=== PATIENT | female | born 1990 | race Caucasian/White ===

== ENCOUNTER 2019-04-21 00:03 | Inpatient (IN) ==
[2019-04-21] MEDS ORDERED: MISOPROSTOL 100 MCG TABLET VG PRN (18:09)
[2019-04-21] MEDS ORDERED: BUTORPHANOL TARTRATE 2 MG/ML VIAL IV PRN ×2 (18:09)
[2019-04-21] MEDS ORDERED: ONDANSETRON 4 MG TAB.RAPDIS PO PRN (18:09)
[2019-04-21] MEDS ORDERED: LIDOCAINE HCL 50 ML VIAL PERI PRN (18:09)
[2019-04-21] MEDS ORDERED: PENICILLIN G POTASSIUM 5 MILLIONUNT in DEXTROSE 5 % IN WATER 100 ML IV ONE ×2 (18:09)
[2019-04-21] MEDS ORDERED: OXYTOCIN/DEXTROSE 5%-WATER 30 UNITS/500 ML BAG IV ONE (18:09)
[2019-04-21] MEDS ORDERED: RINGER'S SOLUTION,LACTATED 1,000 ML IV ONE (18:09)
[2019-04-21 18:22] LABS: Random Urine Total Protein Less than 6.0 mg/dL (0-12)
[2019-04-21 18:26] LABS: Cocaine Ur Negative (NEGATIVE); Urine Barbiturate Negative (NEGATIVE); Urine Benzodiazepines Negative (NEGATIVE); Urine Opiates Negative (NEGATIVE); Urine PCP Negative (NEGATIVE); Urine THC Negative (NEGATIVE)
[2019-04-21 18:36] LABS: Hematocrit 33.7 % (37.0-47.0); Hemoglobin 11.6 gm/dL (12.5-16.0); Mean Cell Volume 93.1 fl (78-100); Mean Corpuscular Hgb Conc 34.4 g/dl (32-36); Mean Platelet Volume 9.5 fl (8-12.5); Neutrophil # 5.8 K/mm3 (1.3-6.0); Neutrophil % 66.3 % (42-75.0); Platelet Count 181 K/mm3 (150-450); Red Blood Count 3.62 M/mm3 (4.2-5.4); Red Cell Distribution Width 13.3 % (11.5-14.0); White Blood Count 8.7 K/mm3 (4.0-10.5)
[2019-04-21 18:45] LABS: Albumin * 2.5 gm/dl (3.4-5.0); BUN/Creatinine Ratio 12.3 (9.0-21.6); Bilirubin, Total 0.2 mg/dL (0.0-1.1); Ca. Corrected For Albumin 9.2 mg/dL (8.4-10.2); Calcium * 8.3 mg/dL (7.9-10.9); Carbon Dioxide 24.6 mmol/L (24-32.6); Potassium 3.6 mmol/L (3.4-4.6); Total Protein 6.4 gm/dL (6.2-8.2)
[2019-04-21] MEDS ORDERED: PENICILLIN G POTASSIUM 2.5 MILLIONUNT in DEXTROSE 5 % IN WATER 100 ML IV SCH ×2 (22:09)
[2019-04-22] MEDS: RINGER'S SOLUTION,LACTATED 1,000 ML IV PRN ×2 (00:03→16:38)
[2019-04-22] MEDS ORDERED: NALOXONE HCL 1 MG/1 ML SYRG IV PRN (15:38)
[2019-04-22] MEDS ORDERED: ONDANSETRON HCL/PF 2 MG/ML VIAL IV PRN (15:38)
[2019-04-22] MEDS ORDERED: BUPIVACAINE HCL/0.9 % NACL/PF 250 ML EP PRN (15:38)
[2019-04-22] MEDS ORDERED: fentaNYL CITRATE/PF 50 MCG/ML AMPUL IT SCH (15:45)
--- NOTE | 2019-04-22 17:27 | HP ---
Chief Complaint - Chief Complaint Date of Service: 04/22/19 Time of Service: 17:06 Chief Complaint: Induction History of Present Illness: 29 year old at 38w0d who presents to labor and delivery for an IOL due to chronic hypertension. She reports irregular contractions. She denies vaginal bleeding or loss of fluid. Fetus is active. The patient denies headache, visual changes or abdominal pain. Medical History (Last Reviewed 04/22/19 @ 17:16 by Corinna Coto MD) Generalized anxiety disorder (Acute) Major depressive disorder, recurrent, moderate (Acute) Migraine headache with aura Onset Date: Unknown Abnormal Pap smear of cervix Onset Date: ~2012 Anemia Onset Date: ~2012 during Surgical History: Surgical History (Last Reviewed 04/22/19 @ 17:16 by Corinna Coto MD) H/O wisdom tooth extraction Onset Date: ~2003 History of colposcopy Onset Date: ~2012 Family History: Family History (Last Reviewed 04/22/19 @ 17:16 by Corinna Coto MD) Father Alive and well Mother Alive and well Aunt Cancer maternal aunt-breast CA Grandmother Cancer (paternal) cancer, unsure what type. Social History: (Last Reviewed 04/22/19 @ 17:16 by Corinna Coto MD) Social History: Marital status: household members: significant other, children current occupational status: employed current occupation: [employer] current occupational exposures/hazards: No Highest education level completed: some college, no degree Service: No Tobacco: Smoking Status: Former smoker tobacco type: e-cigarettes Alcohol: alcohol intake: current alcohol intake frequency: a few times a week details: none since +UPT Substance Use: substance use type: does not use Dietary Habits: caffeine: Yes caffeine comment: 1 daily Type: coffee Pets: pets and animals: cat(s) Review Of Systems (GEN) - Review of Systems Generalized/Overall Review: Present: No Symptoms Reported Misc: All systems neg except as marked Immunizations: IMMUNIZATION HX Immunizations Up to Date Yes History of Influenza Vaccine No Hx Pneumococcal Vaccination No Allergies/Adverse Reactions: Allergies Allergy/AdvReac Type Severity Reaction Status Date / Time No Known Allergies Allergy Verified 04/21/19 18:00 Home Medications: HOME MEDICATIONS cetirizine 10 mg tablet 10 mg PO DAILY 02/09/18 [Last Taken 04/20/19] cholecalciferol (vitamin D3) 1,000 unit capsule 1,000 unit PO DAILY 11/03/18 [Last Taken 04/20/19] blood sugar diagnostic See Dose Instructions .ROUTE .MEDSUPPLY #100 ea 02/11/19 [Last Taken 04/20/19] blood-glucose meter See Dose Instructions .ROUTE .MEDSUPPLY #1 ea 02/11/19 [Last Taken Unknown] lancets 33 gauge See Dose Instructions .ROUTE .MEDSUPPLY #100 ea 02/11/19 [Last Taken Unknown] Vits96/Iron Fum/Folic [ S] 1 tab PO DAILY 02/23/19 [Last Taken Unknown] insulin regular human 100 unit/mL injection solution 4 unit SUBCUT .at dinner #10 ml 02/25/19 [Last Taken 04/20/19] magnesium 200 mg tablet 200 mg PO DAILY 03/08/19 [Last Taken Unknown] insulin NPH isoph U-100 human 100 unit/mL subcutaneous suspension 16 unit SUBCUT HS ml 04/12/19 [Last Taken 04/20/19] insulin syringe-needle U-100 1 mL 25 gauge x 5/8" See Rx Instructions .ROUTE .MEDSUPPLY #100 ea 04/19/19 [Last Taken Unknown] Exam - Exam Vital Signs: Vital Signs - Last Taken Temp 36.7 C 04/21/19 19:10 Pulse 95 04/21/19 19:10 Resp 18 04/21/19 19:10 BP 136/77 04/21/19 19:10 Pulse Ox 98 04/21/19 19:10 Constitutional: Present: Alert, Oriented x3, Cooperative, No distress ENT Exam: Present: hearing grossly normal Back Exam: Present: normal inspection, no CVA tenderness Breasts: Present: Exam deferred Respiratory: Present: lungs clear, normal breath sounds Cardiovascular/Chest: Present: regular rate, rhythm Abdomen: Present: soft, nontender, nondistended /Rectal: Present: Other - cvx 2/50/-2 AROM for bloody fluid Extremity: Present: non-tender, no calf tenderness Skin Exam: Present: normal color, warm/dry, no cyanosis Appearance: Present: appropriate appearance Eye contact: Present: cooperative Thoughts: Present: normal thought pattern Diagnostic Studies: Abnormal Lab Results 04/21/19 04/21/19 04/21/19 Range/Units 18:09 18:29 18:29 RBC 3.62 L (4.2-5.4) M/mm3 Hgb 11.6 L (12.5-16.0) gm/dL Hct 33.7 L (37.0-47.0) % MCH 32.0 H (27-31) pg Immature Gran % (Auto) 0.50 H (0.001-0.429) % Immature Gran # (Auto) 0.04 H (0.000-0.0310) K/mm3 Monocytes % 9.8 H (0.0-9) % Eosinophils % 3.1 H (0.0-3.0) % Anion Gap 14.0 H (6.8-13.8) mmol/L Est GFR (Non-Af Amer) 132 H (60-130) mL/min Albumin 2.5 L (3.4-5.0) gm/dl Ur Random Creatinine 18.4 L (60-200) mg/dL U Hubbard Prot/Creat Ratio 326 H (0-199) mg/gm Laboratory Results WBC 8.7 K/mm3 (4.0-10.5) 04/21/19 18:29 RBC 3.62 M/mm3 (4.2-5.4) L 04/21/19 18:29 Hgb 11.6 gm/dL (12.5-16.0) L 04/21/19 18:29 Hct 33.7 % (37.0-47.0) L 04/21/19 18:29 MCV 93.1 fl (78-100) 04/21/19 18:29 MCH 32.0 pg (27-31) H 04/21/19 18:29 MCHC 34.4 g/dl (32-36) 04/21/19 18:29 RDW 13.3 % (11.5-14.0) 04/21/19 18: Plt Count 181 K/mm3 (150-450) 04/21/19 18: MPV 9.5 fl (8-12.5) 04/21/19 18:29 Immature Gran % (Auto) 0.50 % (0.001-0.429) H 04/21/19 18:29 Immature Gran # (Auto) 0.04 K/mm3 (0.000-0.0310) H 04/21/19 18:29 Neutrophils % 66.3 % (42-75.0) 04/21/19 18: Lymphocytes % 20.0 % (20-51) 04/21/19 18: Monocytes % 9.8 % (0.0-9) H 04/21/19 18: Eosinophils % 3.1 % (0.0-3.0) H 04/21/19 18: Basophils % 0.3 % (0.0-1.0) 04/21/19 18: Nucleated RBC % 0.0 k/mm3 (0-1) 04/21/19 18: Neutrophils # 5.8 K/mm3 (1.3-6.0) 04/21/19 18: Lymphocytes # 1.75 k/mm3 (1.5-3.5) 04/21/19 18: Monocytes # 0.9 k/mm3 (0.0-1.0) 04/21/19 18: Eosinophils # 0.3 k/mm3 (0.0-0.7) 04/21/19 18: Absolute Basophils 0.0 k/mm3 (0.0-0.1) 04/21/19 18:29 Sodium 139 mmol/L (132-142) 04/21/19 18: Plasma Sodium 139 mmol/L (130-142) 04/21/19 18: Potassium 3.6 mmol/L (3.4-4.6) 04/21/19 18: Chloride 104 mmol/L (97-106) 04/21/19 18: Carbon Dioxide 24.6 mmol/L (24-32.6) 04/21/19 18: Anion Gap 14.0 mmol/L (6.8-13.8) H 04/21/19 18:29 BUN 7 mg/dL (3-23) 04/21/19 18: Creatinine 0.57 mg/dL (0.4-1.4) 04/21/19 18: Est GFR (Non-Af Amer) 132 mL/min (60-130) H 04/21/19 18:29 BUN/Creatinine Ratio 12.3 (9.0-21.6) 04/21/19 18: Random Glucose 84 mg/dL (70-110) 04/21/19 18:29 Calcium 8.3 mg/dL (7.9-10.9) 04/21/19 18:29 Calcium Adj for Albumin 9.2 mg/dL (8.4-10.2) 04/21/19 18:29 Total Bilirubin 0.2 mg/dL (0.0-1.1) 04/21/19 18:29 AST 20 U/L (0-48) 04/21/19 18:29 ALT 28 U/L (19-67) 04/21/19 18:29 Alkaline Phosphatase 133 U/L (50-170) 04/21/19 18:29 Total Protein 6.4 gm/dL (6.2-8.2) 04/21/19 18:29 Albumin 2.5 gm/dl (3.4-5.0) L 04/21/19 18:29 Ur Random Creatinine 18.4 mg/dL (60-200) L 04/21/19 18:09 U Random Total Protein Less than 6.0 mg/dL (0-12) 04/21/19 18:09 U Hubbard Prot/Creat Ratio 326 mg/gm (0-199) H 04/21/19 18:09 Urine Opiates Screen Negative (NEGATIVE) 04/21/19 18:09 Barbiturate Screen Negative (NEGATIVE) 04/21/19 18:09 Ur Phencyclidine Scrn Negative (NEGATIVE) 04/21/19 18:09 Urine Amphetamine Negative (NEGATIVE) 04/21/19 18:09 U Benzodiazepines Scrn Negative (NEGATIVE) 04/21/19 18:09 Urine Cocaine Screen Negative (NEGATIVE) 04/21/19 18:09 Urine Marijuana (THC) Negative (NEGATIVE) 04/21/19 18:09 Blood Type A Positive 04/21/19 18:29 Antibody Screen Negative 04/21/19 18:29 Assessment/Plan - Narrative Narrative: 29 year old at 38w1d IOL for CHTN: BPs are normal to mild range GBS negative: prophylaxis not indicated
--- NOTE | 2019-04-22 17:30 | ANES ---
Post Anesthesia Discharge - Transfer of Care Transfer of Care handoff given to nurse: Yes - Anesthesia Post Op Note Anesthesia Post Op Note: Care transferred to OB RN
--- NOTE | 2019-04-22 17:30 | ANES ---
Anesthesia Pre Procedure Eval Vitals/Labs: Last Vital Signs Temp 36.7 C 04/21/19 19:10 Pulse 95 04/21/19 19:10 Resp 18 04/21/19 19:10 BP 136/77 04/21/19 19:10 Pulse Ox 98 04/21/19 19:10 HOME MEDICATIONS cetirizine 10 mg tablet 10 mg PO DAILY 02/09/18 [Last Taken 04/20/19] cholecalciferol (vitamin D3) 1,000 unit capsule 1,000 unit PO DAILY 11/03/18 [Last Taken 04/20/19] blood sugar diagnostic See Dose Instructions .ROUTE .MEDSUPPLY #100 ea 02/11/19 [Last Taken 04/20/19] blood-glucose meter See Dose Instructions .ROUTE .MEDSUPPLY #1 ea 02/11/19 [Last Taken Unknown] lancets 33 gauge See Dose Instructions .ROUTE .MEDSUPPLY #100 ea 02/11/19 [Last Taken Unknown] Vits96/Iron Fum/Folic [ S] 1 tab PO DAILY 02/23/19 [Last Taken Unknown] insulin regular human 100 unit/mL injection solution 4 unit SUBCUT .at dinner #10 ml 02/25/19 [Last Taken 04/20/19] magnesium 200 mg tablet 200 mg PO DAILY 03/08/19 [Last Taken Unknown] insulin NPH isoph U-100 human 100 unit/mL subcutaneous suspension 16 unit SUBCUT HS ml 04/12/19 [Last Taken 04/20/19] insulin syringe-needle U-100 1 mL 25 gauge x 5/8" See Rx Instructions .ROUTE .MEDSUPPLY #100 ea 04/19/19 [Last Taken Unknown] Allergies/Adverse Reactions: Allergies Allergy/AdvReac Type Severity Reaction Status Date / Time No Known Allergies Allergy Verified 04/21/19 18:00 - Planned Procedure Planned Procedure: INDUCTION DUE TO CHRONIC HYPERTENSION Medication List Reviewed:: Yes Allergies Verified: Yes Medical History (Last Reviewed 04/22/19 @ 17:29 by Daniel Giron CRNA) Generalized anxiety disorder (Acute) Major depressive disorder, recurrent, moderate (Acute) Migraine headache with aura Onset Date: Unknown Abnormal Pap smear of cervix Onset Date: ~2012 Anemia Onset Date: ~2012 during Surgical History (Last Reviewed 04/22/19 @ 17:29 by Daniel Giron CRNA) H/O wisdom tooth extraction Onset Date: ~2003 History of colposcopy Onset Date: ~2012 Family History (Last Reviewed 04/22/19 @ 17:29 by Daniel Giron CRNA) Father Alive and well Mother Alive and well Aunt Cancer maternal aunt-breast CA Grandmother Cancer (paternal) cancer, unsure what type. - Family Anesthesia History Family History:: no untoward family reactions to anesthesia - Airway/Neck/Teeth Within Normal Limits:: Yes Teeth Condition: intact Neck Exam: full range of motion Mallampatti Score: 2 Thyromental (T-M) distance: > 6 cm Mandibulo Hyoid distance: > 3 cm - Respiratory Respiratory Physical: lungs clear Smoking Status: Never smoker Sleep Apnea currently treated: No Sleep Apnea by current assessment: No - Cardiovascular Tolerate Activity: Good Heart Sounds: S1 & S2, Regular - Gastrointestinal NPO since: 1200 - Anesthesia Assessment and Plan ASA Class: PS, II, E Anesthesia Type Plan: Epidural Planned difficult intubation/equipment available: No
--- NOTE | 2019-04-22 17:30 | ANES ---
Post Anesthesia Assessment - Vital Signs Vitals: Last Vital Signs Temp 36.7 C 04/21/19 19:10 Pulse 95 04/21/19 19:10 Resp 18 04/21/19 19:10 BP 136/77 04/21/19 19:10 Pulse Ox 98 04/21/19 19:10 Airway Patency: Normal - Mental Status Level Of Consciousness: Awake - Pain Level Pain Score: 2 - N/V Assessment Nausea/Vomiting Presence: None Dehydration:: No
--- NOTE | 2019-04-22 18:02 | ANES ---
Anesthesia Procedure Note Procedure Note: ANESTHESIA PROCEDURE NOTE Date of Procedure: 04/22/2019 Time of procedure: 1550. Performed by: Saman Giron CRNA Settlement Processor: None. Preprocedure diagnosis: Active labor. Post procedure diagnosis: Same. Procedure: Insertion of labor epidural. Indications: The patient is a 29-year-old multigravid female in active labor requesting labor epidural for pain management. Findings: See below. Details of the procedure: The patient was placed in a sitting position. Back was prepped with DuraPrep. Patient was then draped in a sterile fashion. Lidocaine 1% was infiltrated to the skin and subcutaneous tissues at the level of the L3 4 interspace. The epidural space was identified using a 18-gauge Tuohy needle with [id number] technique. Attempted intrathecal injection with 27- gauge spinal needle unsuccessful. Unable to puncture the dura. Epidural catheter was inserted without difficulty. Negative test dose was elicited using 5 mL of 1.5% preservative-free lidocaine plus epinephrine 1 200,000. The epidural catheter was then taped and secured in place. EBL: Minimal. Fluids: N/A. Specimen: N/A. Post procedure condition: The patient tolerated the procedure well. No complications were noted. Thank you for this consultation. Kessler CRNA
[2019-04-22] MEDS ORDERED: MISOPROSTOL 200 MCG TABLET RC ONE (18:15)
--- NOTE | 2019-04-22 18:33 | OR ---
Operative Report - Dictated Report Narrative: Date of delivery: 04/22/2019 Time of delivery: 1806 Gender: female weight: 3173 grams APGARS: 9/10 Procedure: Description of the procedure: The patient presented to labor and delivery for a medical induction of labor due to chronic hypertension. She progressed to complete dilation. She delivered a viable female infant in SAMIR presentation. The shoulders delivered without any difficulty followed by the rest of the infant. Cord clamping was delayed. The cord was clamped and cut. The placenta was delivered by expression and appeared intact. A trickle of bleeding ensued so aside from pitocin 30 units, 1000mcg of cytotec was placed rectally. EBL: 200 mL Complications: none Lacerations: left labial not repaired due to hemostasis History for MU Definition: * The number of deliveries resulting in a live the patient experienced prior to current hospitalization * The previous delivery of live twins or any live multiple gestation is considered one live event. *If primagravida or nulliparous is documented select zero for the number of previous live births. Live Events: 2
[2019-04-22] MEDS ORDERED: SENNOSIDES 8.6 MG TABLET PO PRN (18:34)
[2019-04-22] MEDS ORDERED: BISACODYL 10 MG SUPP.RECT RC PRN (18:34)
[2019-04-22] MEDS ORDERED: diphenhydrAMINE HCL 25 MG CAPSULE PO PRN (18:34)
[2019-04-22] MEDS ORDERED: BENZOCAINE/MENTHOL 81 SPRAY CAN TP PRN (18:34)
[2019-04-22] MEDS ORDERED: OXYTOCIN/DEXTROSE 5%-WATER 30 UNITS/500 ML BAG IV ONE (18:34)
[2019-04-22] MEDS ORDERED: GLYCERIN/WITCH HAZEL LEAF 40 APPL BOX TP PRN (18:34)
[2019-04-22] MEDS ORDERED: HYDROCORTISONE 30 APPL TUBE TP PRN (18:34)
[2019-04-22] MEDS ORDERED: HYDROcodone/ACETAMINOPHEN 1 EACH TABLET PO PRN ×2 (18:34)
[2019-04-22] MEDS: DOCUSATE SODIUM 100 MG CAPSULE PO SCH (22:21)
[2019-04-23] MEDS: IBUPROFEN 800 MG TABLET PO PRN ×3 (09:09→21:24)
[2019-04-23] MEDS: DOCUSATE SODIUM 100 MG CAPSULE PO SCH ×2 (09:09→21:24)
--- NOTE | 2019-04-23 12:02 | PN ---
Subjective - Date and Time Seen Date: 04/23/19 Time: 12:01 Subjective Narrative: Patient without complaints Objective Objective Narrative: See vital signs - Review of Systems Generalized/Overall Review: Reports: No Symptoms Reported Misc: All systems neg except as marked - Vitals Vitals: Last Vital Signs Temp 36.9 C 04/23/19 07:20 Pulse 100 04/23/19 07:20 Resp 18 04/23/19 07:20 BP 118/67 04/23/19 07:20 Pulse Ox 97 04/23/19 03:44 - Exam Constitutional: Present: Alert, Oriented x3, Cooperative, No distress Abdomen: Present: soft, nontender, nondistended - fundus is firm Extremity: Present: non-tender, no calf tenderness Skin Exam: Present: normal color, warm/dry, no cyanosis Appearance: Present: appropriate appearance Eye contact: Present: cooperative Thoughts: Present: normal thought pattern Cauti Physician Documentation - Urinary Catheter Management Urethral ([place]) Urethral Indwelling: No Date of Removal: 04/22/19 Time of Removal: 18:00 Assessment/Plan Plan Narrative: PPD 1 s/p Doing well Discharge tomorrow
[2019-04-24] MEDS: IBUPROFEN 800 MG TABLET PO PRN ×2 (04:45→11:36)
[2019-04-24] MEDS: DOCUSATE SODIUM 100 MG CAPSULE PO SCH (07:40)
[2019-04-24 07:59] VITALS: BP 107/65
--- NOTE | 2019-04-24 12:52 | PN ---
Subjective - Date and Time Seen Date: 04/24/19 Time: 12:50 Objective - Vitals Vitals: Last Vital Signs Temp 36.9 C 04/24/19 07:52 Pulse 88 04/24/19 07:52 Resp 20 04/24/19 07:52 BP 107/65 04/24/19 07:52 Pulse Ox 99 04/24/19 07:52 Patient denies complaints. Breast-feeding without difficulty. Lochia wnl abdomen - soft, nontender Uterus -firm, at umbilicus - 2 no calf tenderness Impression: day #2 - s/p spontaneous vaginal delivery. Gestational diabetes-resolved Plan: Routine discharge instructions. Recheck fasting and 1 hour postprandial blood sugar day of visit. Cauti Physician Documentation - Urinary Catheter Management Urethral ([place]) Urethral Indwelling: No Date of Removal: 04/22/19 Time of Removal: 18:00
[2019-04-25] MEDS ORDERED: PRENATAL VITS96/IRON FUM/FOLIC 1 TAB TABLET PO SCH (09:00)
== END 2019-04-24 13:15 | disposition home or self-care (01) | DRG 807 ==
LOC: OB 17:41
PROVIDERS: ADMIT Obstetrics & Gynecology; ATTEND Obstetrics & Gynecology
CPT/HCPCS: 36415; 59025; 80053; 80307; 82570; 84155; 84156; 85025; 86850; 88307